=== PATIENT | male | born 1945 | race Caucasian/White ===

== ENCOUNTER 2018-07-17 10:31 | Emergency (ER) | payer OTHER, MEDICARE ==
[2018-07-17 11:19] LABS: ABSOLUTE BASOPHILS # (AUTO) 0.1 10^3/uL (0.0-0.2); ABSOLUTE EOSINOPHILS # (AUTO) 0.4 10^3/uL (0.0-0.6); ABSOLUTE LYMPHOCYTES (AUTO) 1.9 10^3/uL (0.5-4.7); ABSOLUTE MONOCYTES (AUTO) 0.8 10^3/uL (0.1-1.4); ABSOLUTE NEUT (AUTO) 3.5 10^3/uL (1.7-8.2); BASOPHILS % (AUTO) 1.1 % (0-2); EOSINOPHILS % (AUTO) 5.7 % (0-6); HEMATOCRIT 46.2 % (37.9-51.0); HEMOGLOBIN 15.5 g/dL (13.5-17.0); LYMPHOCYTES % (AUTO) 28.2 % (13-45); MEAN CORPUSCULAR HEMOGLOBIN 28.9 pg (27.0-33.4); MEAN CORPUSCULAR HGB CONC 33.6 g/dL (32.0-36.0); MEAN CORPUSCULAR VOLUME 86 fl (80-97); MONOCYTES % (AUTO) 12.1 % (3-13); PLATELET COUNT 167 10^3/uL (150-450); RED BLOOD COUNT 5.38 10^6/uL (4.35-5.55); RED CELL DISTRIBUTION WIDTH 14.5 % (11.5-14.0); SEGMENTED NEUTROPHILS % (AUTO) 52.9 % (42-78); TOTAL CELLS COUNTED % (AUTO) 100 %; WHITE BLOOD COUNT 6.7 10^3/uL (4.0-10.5)
[2018-07-17 11:33] LABS: ALANINE AMINOTRANSFERASE 42 U/L (21-72); ALBUMIN 4.8 g/dL (3.5-5.0); ALKALINE PHOSPHATASE 57 U/L (38-126); ANION GAP 12 (5-19); ASPARTATE AMINO TRANSFERASE 53 U/L (17-59); BILIRUBIN,DIRECT 0.3 mg/dL (0.0-0.4); BILIRUBIN,TOTAL 1.2 mg/dL (0.2-1.3); BLOOD UREA NITROGEN 20 mg/dL (7-20); CALCIUM 9.6 mg/dL (8.4-10.2); CARBON DIOXIDE 27 mmol/L (22-30); CHLORIDE 104 mmol/L (98-107); CREATINE KINASE 51 U/L (55-170); GLUCOSE 92 mg/dL (75-110); POTASSIUM 4.4 mmol/L (3.6-5.0); SODIUM 142.9 mmol/L (137-145)
[2018-07-17 11:33] LABS: APPEARANCE,URINE SLIGHTLY-CLOUDY; BILIRUBIN,URINE NEGATIVE (NEGATIVE); COLOR,URINE AMBER; GLUCOSE, URINE NEGATIVE (NEGATIVE); KETONES,URINE NEGATIVE (NEGATIVE); LEUKOCYTE ESTERASE,URINE NEGATIVE (NEGATIVE); NITRITE,URINE NEGATIVE (NEGATIVE); PROTEIN,URINE NEGATIVE (NEGATIVE)
[2018-07-17 11:44] LABS: CREATINE KINASE MB 0.67 ng/mL (<4.55)
[2018-07-17 11:45] LABS: TROPONIN I < 0.012 ng/mL
--- NOTE | 2018-07-17 12:55 | ER Document Report ---
ED General - General Chief Complaint: Near Syncope Stated Complaint: SYNCOPE Time Seen by Provider: 07/17/18 10:42 - HPI Notes: Patient presents emergency department for evaluation of a near syncopal episode. Evidently he was at [facility]. He notes that he had been standing for some time. He began to feel very dizzy and as if he was going to pass out. He slowly lowered himself towards the pew. He became diaphoretic following that. He never had a full syncopal episode. On further questioning this is happened multiple times, the last episode being nearly a year ago. He denies any associated chest pain, visual changes. He denies any difficulty moving his arms or legs, no difficulty speaking or swallowing. He did have breakfast, states he had a cookie and 2 cups of coffee. States he is taking his medications as pre scribed, no recent medication changes. - Related Data Allergies/Adverse Reactions: IVP Dye Allergy (Uncoded 07/17/18 10:51) Past Medical History - General Information source: Patient, Relative - Social History Smoking Status: Former Smoker Chew tobacco use (# tins/day): No Frequency of alcohol use: Occasional Drug Abuse: None Family History: Reviewed & Not Pertinent Patient has suicidal ideation: No Patient has homicidal ideation: No - Past Medical History Cardiac Medical History: Reports: Hx Hypercholesterolemia, Hx Hypertension Renal/ Medical History: Denies: Hx Peritoneal Dialysis Past Surgical History: Reports: Hx Bowel Surgery - rectal fistula, Hx Orthopedic Surgery Review of Systems - Review of Systems Constitutional: Weakness EENT: No symptoms reported Cardiovascular: See HPI Respiratory: No symptoms reported Gastrointestinal: No symptoms reported Musculoskeletal: No symptoms reported Skin: No symptoms reported Neurological/Psychological: No symptoms reported Physical Exam - Vital signs Vitals: Resp BP Pulse Ox 21 H 116/80 97 07/17/18 10:38 07/17/18 10:38 07/17/18 10:38 - Notes Notes: Vital signs reviewed, please refer to chart. Patient is normocephalic, atraumatic. Pupils equal round, reactive to light. Neck is supple without meningismus. Heart is regular rate and rhythm. Lungs are clear to auscultation bilaterally. Abdomen is soft, nontender, normoactive bowel sounds throughout. Extremities without cyanosis, clubbing, edema. Peripheral pulses are equal. Skin is warm and dry. Patient is awake, alert, oriented x3. Cranial nerves II through XII are grossly intact with a focal neurological deficits. Strength is plus 5 out of 5 bilateral upper and lower extremities. Sensation is intact, reflexes are symmetrical. Intact [id number], rapid washing movements, heel to chavira. Course - Re-evaluation Re-evalutation: 07/17/18 12:53 Patient presents to the emergency department for evaluation after near syncopal episode. His symptoms did not return while here. This is not a new problem for him. His orthostatics were largely unremarkable. He already follows with cardiology, actually has an appointment upcoming. EKG, labs unremarkable. Patient is anxious for discharge. He is to follow-up with his doctor and ca rdiologist this week. Return to the emergency department with worsening or new concerning symptoms. - Vital Signs Vital signs: Temp Pulse Resp BP Pulse Ox 97.5 F 58 L 15 126/85 H 97 07/17/18 12:49 07/17/18 11:20 07/17/18 12:49 07/17/18 12:49 07/17/18 12:49 - Laboratory Result Diagrams: 07/17/18 09:58 07/17/18 09:58 Laboratory results interpreted by me: 07/17/18 07/17/18 07/17/18 09:58 09:58 11:21 RDW 14.5 H Creatine Kinase 51 L Urine Urobilinogen 4.0 H - EKG Interpretation by Me Additional EKG results interpreted by me: 07/17/18 12:55 Sinus mechanism with a rate of 59 bpm. Frequent PVCs noted. No acute ST changes concerning for ischemia or infarction. No old studies for comparison. Discharge - Discharge Clinical Impression: Near syncope Condition: Stable Disposition: HOME, SELF-CARE Instructions: Near Syncopal Episode ([facility]) Additional Instructions: Rest, stay well-hydrated. Continue your home medications as previously prescribed. Follow-up with your doctor this week. Return to the emergency department with worsening or new concerning symptoms.
[2018-07-17 13:07] VITALS: BP 126/85
--- NOTE | 2018-07-17 15:54 | EKG REPORT ---
SEVERITY:- ABNORMAL ECG - SINUS RHYTHM VENTRICULAR TRIGEMINY PAC : Confirmed by: Timothy Canales MD 17-Jul-2018 15:52:53
== END 2018-07-17 13:07 | disposition home or self-care (01) ==
LOC: ER 10:31
DX: R55 Syncope and collapse (principal); I49.3 Ventricular premature depolarization; R61 Generalized hyperhidrosis; I10 Essential (primary) hypertension; R53.1 Weakness; Z91.041 Radiographic dye allergy status; Z87.891 Personal history of nicotine dependence
CPT/HCPCS: 36415; 80053; 81001; 82550; 82553; 83735; 84484; 85025; 93005; 93010; 99284